=== PATIENT | male | born 1960 ===

== ENCOUNTER 2017-10-30 20:50 | Outpatient (REF) | payer OTHER, SELFPAY ==
[2017-11-03 09:42] LABS: PSA, Screening 0.4 ng/ml (0-3.5)
== END 2017-10-30 20:51 ==
LOC: NCHCN 20:50
PROVIDERS: PCP Internal Medicine; Visit Provider Internal Medicine
DX: Z00.00 Encounter for general adult medical examination without abnormal findings (principal); Z12.5 Encounter for screening for malignant neoplasm of prostate; Z80.42 Family history of malignant neoplasm of prostate
CPT/HCPCS: 84153

== ENCOUNTER 2023-10-28 15:54 | Outpatient (REF) | payer BC, SELFPAY ==
[2023-10-28 21:47] LABS: ALT 27 U/L (16-63); AST 22 U/L (15-37); Albumin 4.2 g/dL (3.4-5.0); Alkaline Phosphatase 74 U/L (46-116); Anion Gap 7.7 mmol/L (3-11); BUN 15 mg/dL (7-18); Bilirubin, Total 1.53 mg/dL (0.2-1.0); CO2 29.3 mmol/L (21.0-32.0); CREATININE 0.9 mg/dL (0.70-1.30); Calcium 9.2 mg/dL (8.5-10.1); Chloride 101 mmol/L (98-107); Estimated GFR 97.17 (mL/min/1.73m2); Glucose 96 mg/dL (74-106); Potassium 4.8 mmol/L (3.5-5.1); Sodium 138 mmol/L (136-145); Total Protein 6.9 g/dL (6.4-8.2); Vitamin B12 175 pg/mL (193-986); Vitamin D 25 Total 25.8 ng/mL (30-100)
== END 2023-10-28 15:55 | disposition home or self-care (01) ==
LOC: NCHCN 15:54
PROVIDERS: PCP Internal Medicine; Visit Provider Family Medicine
DX: N18.9 Chronic kidney disease, unspecified (principal); E53.8 Deficiency of other specified B group vitamins; E55.9 Vitamin D deficiency, unspecified
CPT/HCPCS: 80053; 82306; 82607

== ENCOUNTER 2023-11-07 16:26 | Outpatient (REF) | payer BC, SELFPAY ==
[2023-11-07 21:49] LABS: Abs Immature Grans 0.02 10^3/uL (0.0-0.06); Absolute Basophil Count 0.06 10^3/uL (0.0-0.2); Absolute Eosinophil Count 0.19 10^3/uL (0.0-0.7); Absolute Lymphocyte Count 1.74 10^3/uL (1.2-3.4); Absolute Monocyte Count 0.51 10^3/uL (0.1-0.8); Absolute Neutrophil Count 3.54 10^3/uL (1.2-6.7); Eosinophils % 3.1 %; HCT 38.9 % (40.0-50.0); HGB 13.5 g/dL (13.5-17.5); Immature Grans % 0.3 %; Lymphocytes % 28.7 %; MCH 31.2 pg (27.0-33.0); MCHC 34.7 % (32.0-36.0); MCV 90 fL (80-95); MPV 10.9 fL (8.0-11.0); Monocytes % 8.4 %; Neutrophils % 58.5 %; Platelet Count 217 10^3/uL (130-400); RBC 4.33 10^6/uL (4.36-5.78); RDW 11.7 % (11.8-14.1); RDW-SD 38.7 fL; WBC 6.06 10^3/uL (4.4-10.8)
[2023-11-07 21:59] LABS: Bilirubin, Direct 0.2 mg/dL (0.0-0.2); Bilirubin, Total 1.06 mg/dL (0.2-1.0)
[2023-11-10 08:30] LABS: PSA, Screening 0.5 ng/mL (<=4.5)
== END 2023-11-07 16:27 | disposition home or self-care (01) ==
LOC: NCHCN 16:26
PROVIDERS: PCP Internal Medicine; Visit Provider Family Medicine
DX: Z00.00 Encounter for general adult medical examination without abnormal findings (principal)
CPT/HCPCS: 84153; 82247; 82248; 85025